=== PATIENT | male | born 1985 | race Caucasian/White ===

== ENCOUNTER 2018-12-06 16:21 | Emergency (ER) | payer OTHER ==
[~2018-12-06] VITALS: Ht 185.4 cm; Wt 93.0 kg
[2018-12-06 16:25] VITALS: BP 139/78
[2018-12-06] MEDS ORDERED: IBUPROFEN 600 MG TABLET. PO ONE ×2 (16:51→17:00)
--- NOTE | 2018-12-06 16:55 | PHYS DOC ---
Past History Past Medical History: No Pertinent History Past Surgical History: Other Smoking: Non-smoker Alcohol Use: Occasionally Drug Use: None Adult General Chief Complaint Chief Complaint: BACK INJURY HPI HPI Patient is a 33-year-old male who presents with back pain. He was jumping while playing basketball this morning and collided with another player, and his legs were taken out from under him, causing him to land on his back. There has been no loss of bowel or bladder control. Patient has no history of back pain/ surgery. Increased pain with movement. Better with holding still. [] Review of Systems Review of Systems Constitutional: Denies fever or chills [] Eyes: Denies change in visual acuity, redness, or eye pain [] HENT: Denies nasal congestion or sore throat [] Respiratory: Denies cough or shortness of breath [] Cardiovascular: No chest pain or palpitations[] GI: Denies abdominal pain, nausea, vomiting, bloody stools or diarrhea [] : Denies dysuria or hematuria [] Musculoskeletal: See history of present illness[] Integument: Denies rash or skin lesions [] Neurologic: Denies headache, focal weakness or sensory changes [] Endocrine: Denies polyuria or polydipsia [] All other systems were reviewed and found to be within normal limits, except as documented in this note. Current Medications Current Medications Current Medications Medications (Trade) Dose Ordered Sig/Shamir Start Time Stop Time Status Last Admin Dose Admin Ibuprofen (Motrin) 600 mg 1X ONCE 12/06/18 17:00 12/06/18 17:01 UNV Allergies Allergies Allergies Coded Allergies Type Severity Reaction Last Updated Verified No Known Drug Allergies 12/06/18 No Physical Exam Physical Exam Constitutional: Well developed, well nourished, mild discomfort, holding still, non-toxic appearance. [] HENT: Normocephalic, atraumatic, bilateral external ears normal, oropharynx moist, no oral exudates, nose normal. [] Eyes: PERRLA, EOMI, conjunctiva normal, no discharge. [] Neck: Normal range of motion, no tenderness, supple, no stridor. [] Cardiovascular:Heart rate regular rhythm, no murmur [] Lungs & Thorax: Bilateral breath sounds clear to auscultation [] Abdomen: Bowel sounds normal, soft, no tenderness, no masses, no pulsatile masses. [] Skin: Warm, dry, no erythema, no rash. [] Back: Tenderness in the midline and to the right of midline in the paraspinal musculature, as well as along the right iliac crest. Decreased active range of motion. Normal gait. no CVA tenderness. [] Extremities: No tenderness, no cyanosis, no clubbing, ROM intact, no edema. [] Neurologic: Alert and oriented X 3, normal motor function, normal sensory function, no focal deficits noted. [] Psychologic: Affect normal, judgement normal, mood normal. [] Current Patient Data Vital Signs Vital Signs Date Time Temp Pulse Resp B/P (MAP) Pulse Ox O2 Delivery O2 Flow Rate FiO2 12/06/18 16:25 97.7 59 16 97 Room Air EKG EKG [] Radiology/Procedures Radiology/Procedures X-ray of the lumbar spine as well as the pelvis does not show any fracture or subluxation or any other acute bony abnormality.[] Course & Med Decision Making Course & Med Decision Making Pertinent Labs and Imaging studies reviewed. (See chart for details) ED course and medical decision making: There does not appear to be any evidence of fracture or subluxation. No evidence of cauda equina syndrome. This appears to be more of a spasm. Patient arrived, was placed in bed, and tolerated exam well. He was transferred to and from x-ray with any complications. He did get some pain relief with the ibuprofen. We will discharge the patient with anti- inflammatories as well as muscle relaxers. Discussed findings with patient and his family who voiced understanding. All questions were answered. Patient was discharged in improved condition.[] Dragon Disclaimer Dragon Disclaimer This electronic medical record was generated, in whole or in part, using a voice recognition dictation system. Departure Departure: Impression: Primary Impression: Low back pain Disposition: 01 HOME, SELF-CARE Condition: IMPROVED Referrals: PCP,UNKNOWN (PCP) Patient Instructions: Low Back Sprain with [facility]hab[facility] Additional Instructions: Follow-up with your regular doctor within 2 days. Warm compresses to the affected area for 15 minutes at a time, at least 4 times a day. Return to the ER if worsening pain, weakness, loss of bowel or bladder control, or any other concerns. Scripts Orphenadrine Citrate (ORPHENADRINE CITRATE) 100 Mg Tablet.er 100 MG PO BID for BACK PAIN, #20 TAB.SR Prov: JATINDERMARY HENDERSON 12/06/18 Meloxicam (MELOXICAM) 7.5 Mg Tablet 7.5 MG PO DAILY for PAIN, #20 TAB Prov: MARY TOBIAS DO 12/06/18 Problem Qualifiers Primary Impression: Low back pain Chronicity: acute Back pain laterality: right Sciatica presence: without sciatica Qualified Codes: M54.5 - Low back pain MARY TOBIAS DO Dec 06, 2018 16:55
[2018-12-06] MEDS ORDERED: ORPH-16 PO (17:59)
[2018-12-06] MEDS ORDERED: MELO7.5T29 PO (17:59)
--- NOTE | 2018-12-06 22:55 | RAD ---
LUMBAR SPINE 2-3V History: INJURY TODAY PLAYING BASKETBALL, WORSE ON THE RIGHT SIDE OF THE BACK Comparison: None. Findings: 3 views lumbar spine are submitted. Lumbar vertebral body stature and AP alignment are maintained. Intervertebral disc spaces are relatively preserved, mild narrowing L5-S1. No acute osseous abnormality is identified by radiographs. Impression: 1. No acute osseous abnormality is identified by radiographs. Electronically signed by: Pancho Ordonez MD (12/06/2018 10:52 PM) [facility] [place]
--- NOTE | 2018-12-06 22:56 | RAD ---
PELVIS History: INJURY TODAY PLAYING BASKETBALL, WORSE ON THE RIGHT SIDE OF THE BACK Comparison: None. Findings: AP view the pelvis is submitted. No acute osseous abnormality is identified by radiograph. Impression: 1. No acute osseous abnormality is identified by radiograph. Electronically signed by: Pancho Ordonez MD (12/06/2018 10:53 PM) [facility]
== END 2018-12-06 18:06 | disposition home or self-care (01) ==
LOC: ER 16:21
DX: M54.5 Low back pain (principal); G89.11 Acute pain due to trauma; W03.XXXA Other fall on same level due to collision with another person, initial encounter; Y93.67 Activity, basketball; Y92.89 Other specified places as the place of occurrence of the external cause; Y99.8 Other external cause status
CPT/HCPCS: 72100; 72170; 99284